=== PATIENT | female | born 1985 | race Caucasian/White ===

== ENCOUNTER 2018-04-13 09:29 | Outpatient (CLI) | payer OTHER, SELFPAY ==
[2018-04-13 22:01] LABS: Estradiol 27 pg/ml
[2018-04-14 10:34] LABS: LH 2.3 mIU/ml
[2018-04-14 10:52] LABS: FSH 8.4 mIU/ml
[2018-04-15 17:13] LABS: Antimullerian Hormone 0.6 ng/mL (0.9-9.5)
== END 2018-04-13 09:49 ==
PROVIDERS: PCP Nurse Practitioner Family; Visit Provider Obstetrics & Gynecology Gynecology
DX: N97.0 Female infertility associated with anovulation (principal)
CPT/HCPCS: 36415; 82670; 83001; 83002; 83520

== ENCOUNTER 2018-04-19 00:16 | Outpatient (CLI) | payer OTHER, SELFPAY ==
[2018-04-20 17:58] LABS: Progesterone 0.2 ng/ml
== END 2018-04-19 00:36 ==
PROVIDERS: Obstetrics & Gynecology; PCP Nurse Practitioner Family; Visit Provider Obstetrics & Gynecology Gynecology
DX: Z31.41 Encounter for fertility testing (principal)
CPT/HCPCS: 36415; 84144

== ENCOUNTER 2018-05-13 15:39 | Outpatient (CLI) | payer OTHER, SELFPAY ==
[2018-05-14 17:49] LABS: Estradiol 28 pg/ml
[2018-05-15 10:10] LABS: LH 3.5 mIU/ml
[2018-05-15 11:23] LABS: FSH 9.6 mIU/ml
== END 2018-05-13 15:59 ==
PROVIDERS: PCP Nurse Practitioner Family; Visit Provider Obstetrics & Gynecology Gynecology
DX: Z31.41 Encounter for fertility testing (principal)
CPT/HCPCS: 36415; 82670; 83001; 83002

== ENCOUNTER 2018-05-15 01:27 | Outpatient (CLI) | payer OTHER, SELFPAY ==
[2018-05-15] MEDS: Omnipaque 350 MG/ML 50 ML BTL IJ (13:58)
--- NOTE | 2018-05-15 13:59 | DI.RAD_ITS ---
SYMPTOMS/DIAGNOSIS: INFERTILITY HYSTEROSALPINGOGRAM: Fluoroscopy Time: 15 sec The procedure was performed by Dr. Rosa. Contrast is injected into the uterus. The uterus is anteverted. No uterine filling defects are seen. Spillage of contrast was seen definitely from the right fallopian tube and also likely from the left. There is no evidence of hydrosalpinx. IMPRESSION: Probable bilateral patent fallopian tubes.
--- NOTE | 2018-05-16 17:35 | OPPNE_ITS ---
Date of service: 05/15/18 Procedure Note Date of procedure: 05/15/18 Surgeon/Proceduralist/Physician: Jocelyn Rosa Procedure Diagnosis: Patient desires Procedure Indications: Hysterosalpingogram performed as part of a primary infertility evaluation. Procedure Description: Description of procedure. The procedure was performed in the fluoroscopy suite at [facility]. After informed consent was obtained she was placed in the dorsal supine position with a pillow beneath her sacrum elevating her hips. A bivalve speculum was placed in the vagina the cervix was cleansed with Betadine and a hysterosalpingogran catheter was threaded through the cervix and into the uterine cavity. The bulb at the tip of the catheter was inflated and the speculum removed. Dr. Luna, the radiologist, was present during the fluoroscopy portion of the procedure. Approximately 10 cc of Omnipaque contrast material was instilled by myself into the uterine cavity and followed through the fallopian tubes and observed spilling from the fimbria of both fallopian tubes. Both of the fallopian tubes appeared normal dimension. The uterine cavity also appeared normal. At the completion of the imaging the catheter bulb was deflated and removed from the patient's vagina. The results of the procedure were discussed at length with the patient. She tolerated the procedure well.
== END 2018-05-15 01:47 ==
PROVIDERS: PCP Nurse Practitioner Family; Visit Provider Obstetrics & Gynecology Gynecology
DX: Z31.41 Encounter for fertility testing (principal)
CPT/HCPCS: 58340; 76831; 74740; Q9967

== ENCOUNTER 2018-05-18 09:26 | Outpatient (CLI) | payer OTHER, SELFPAY ==
[2018-05-18 22:47] LABS: Estradiol 291 pg/ml
[2018-05-20 09:07] LABS: LH 5.6 mIU/ml
[2018-05-20 09:11] LABS: FSH 7.8 mIU/ml
== END 2018-05-18 09:46 ==
PROVIDERS: PCP Nurse Practitioner Family; Visit Provider Obstetrics & Gynecology Gynecology
DX: Z31.69 Encounter for other general counseling and advice on procreation
CPT/HCPCS: 36415; 82670; 83001; 83002

== ENCOUNTER 2018-07-13 11:52 | Outpatient (CLI) | payer OTHER, SELFPAY ==
[2018-07-13 12:50] LABS: HCG Quant, Pregnancy 7701 mIU/mL (1-3)
== END 2018-07-13 12:12 ==
PROVIDERS: PCP Nurse Practitioner Family; Visit Provider Obstetrics & Gynecology Gynecology
DX: Z34.91 Encounter for supervision of normal pregnancy, unspecified, first trimester (principal)
CPT/HCPCS: 36415; 84702

== ENCOUNTER 2018-08-17 16:49 | Outpatient (REF) | payer OTHER, SELFPAY ==
[2018-08-17 19:07] LABS: *AMPHETAMINES SCREEN URINE Negative (Negative); *BARBITURATES SCREEN URINE Negative (Negative); *BENZODIAZEPINES SCREEN URINE Negative (Negative); Cannabinoids THC Negative (Negative); Cocaine Screen,Urine Negative (Negative); METHADONE URINE SCREEN Negative (Negative); OPIATES URINE SCREEN Negative (Negative)
[2018-08-17 19:19] LABS: Tricyclic Antidepressants Negative (Negative)
[2018-08-19 14:45] LABS: Chlamydia Result Negative; GC Result Negative; Specimen Description URINE
[2018-08-21 19:31] LABS: Buprenorphine Negative; Norbuprenorphine Negative
== END 2018-08-17 17:09 ==
LOC: LBN 16:49
PROVIDERS: PCP Nurse Practitioner Family; Visit Provider Advanced Practice Midwife
DX: Z34.91 Encounter for supervision of normal pregnancy, unspecified, first trimester (principal); Z11.3 Encounter for screening for infections with a predominantly sexual mode of transmission
CPT/HCPCS: 80307; 87491; 87591; 87086

== ENCOUNTER 2018-08-20 13:57 | Outpatient (CLI) | payer OTHER, SELFPAY ==
[2018-08-20 14:34] LABS: Abs Immature Grans 0.01 k/cumm (0.0-0.09); Absolute Basophil Count 0.03 k/cumm (0.0-0.2); Absolute Eosinophil Count 0.19 k/cumm (0.0-0.7); Absolute Lymphocyte Count 2.41 k/cumm (1.2-3.4); Absolute Monocyte Count 0.45 k/cumm (0.11-0.7); Absolute Neutrophil Count 5.55 k/cumm (1.2-6.7); Basophils % 0.3; Eosinophils % 2.2; HCT 40.2 % (36.0-46.0); HGB 14.1 g/dL (12.0-15.5); Immature Grans % 0.1; Lymphocytes % 27.9; Mean Corp. HGB Concentration 35.1 g/dL (32.0-36.0); Mean Corpuscular Hemoglobin 29.4 pg (27.0-33.0); Mean Corpuscular Volume 83.8 fL (80-95); Mean Platelet Volume 9.4 fL (8.0-11.0); Monocytes % 5.2; Neutrophils % 64.3; Platelet Count 311 x1000/uL (130-400); RBC Distribution Width 12.3 % (11.7-14.6); White Blood Cell Count 8.64 k/cumm (4.4-10.8)
[2018-08-20 15:24] LABS: TSH (W/Ref FT4) 0.89 uIU/mL (0.358-3.74)
[2018-08-21 09:03] LABS: Hepatitis B Surface Ag Negative (NEGAT)
[2018-08-21 09:36] LABS: HIV-1/2 Ag & Ab Screen Negative (NEGAT)
[2018-08-21 13:01] LABS: Varicella IgG Antibody Positive
[2018-08-21 13:05] LABS: Syphilis Serology (RPR) Negative (Negative)
[2018-08-21 15:57] LABS: Rubella IgG Ab (UVM) Equivocal
== END 2018-08-20 14:17 ==
PROVIDERS: PCP Nurse Practitioner Family; Visit Provider Advanced Practice Midwife
DX: Z34.91 Encounter for supervision of normal pregnancy, unspecified, first trimester (principal); Z11.4 Encounter for screening for human immunodeficiency virus [HIV]; Z11.59 Encounter for screening for other viral diseases; Z01.84 Encounter for antibody response examination
CPT/HCPCS: 36415; 80055; 86787; 86850; 86900; 86901; 87340; 87389; 84443; 86592; 86704; 86762

== ENCOUNTER 2018-09-14 15:50 | Outpatient (CLI) | payer OTHER, SELFPAY ==
[2018-09-14 16:31] LABS: Glucose,1 Hr (Glucola) 129 mg/dL (80-140)
== END 2018-09-14 16:10 ==
PROVIDERS: Advanced Practice Midwife; PCP Nurse Practitioner Family; Visit Provider Advanced Practice Midwife
DX: Z34.91 Encounter for supervision of normal pregnancy, unspecified, first trimester (principal); Z68.30 Body mass index [BMI] 30.0-30.9, adult
CPT/HCPCS: 36415; 82950

== ENCOUNTER 2018-10-07 00:30 | Outpatient (CLI) | payer OTHER, SELFPAY ==
--- NOTE | 2018-10-07 14:44 | DI.US_ITS ---
Predicted Gestational Age: Indication/History: SURVEY, Z34.90 17.5 Wks Range: 16.5 to 18.5 Prior US done on: Determined by: First US LMP History EDC by prior US: 03/12/19 For multiple gestations: Baby PLACENTA: Grade: 0 Location: Anterior X Posterior PRESENTATION: RT LT LOW LYING PREVIA Cephalic Trans (Head RT LT ) Varied X Breech BIOMETRY: Anatomy Identified: BPD: 40 mm 18.1 wks 4 chamber Heart X Heart Rate 145 BPM HC: 152 mm 18.2 wks LVOT X Post Fossa X AC: 126 mm 18.1 wks RVOT X Ventricles X FL: 27 mm 18.1 wks Stomach X Nose X Bladder X Lips X Cisterna Magna: 3.4 mm CI: 85 Kidneys X Palate X Cerebellum: 1.8 mm 3 vessel cord X Spine X EFW: grms % Cord Insertion X NS= not seen Composite Age (US) 18.1 wks Many abnormalities cannot be diagnosed. A normal exam does not exclude congenital abnormality. EDC by US 03/09/19 Amniotic Fluid Index: Oligo Normal Polyhydramnios COMMENTS: RUQ: LUQ: RLQ: LLQ: Total: cm Biophysical Profile: Score 0/2 CANDICE (>2cm) Respirations (>30 sec) Body flexion/extension Extremity flexion/extension TOTAL SCORE OB ultrasound was performed utilizing second trimester protocol. biometry is consistent with a gestational age of 18 weeks 1 day and an EDC of 03/09/19. The placenta is anterior and there is no evidence of a placenta previa. There is visually a normal quantity of amniotic fluid. anomaly screen is within normal limits as per the attached checklist.
== END 2018-10-07 00:50 ==
PROVIDERS: PCP Nurse Practitioner Family; Visit Provider Advanced Practice Midwife
DX: Z34.92 Encounter for supervision of normal pregnancy, unspecified, second trimester (principal)
CPT/HCPCS: 76805

== ENCOUNTER 2018-12-07 12:28 | Outpatient (CLI) | payer OTHER, SELFPAY ==
[2018-12-07 14:10] LABS: Abs Immature Grans 0.07 k/cumm (0.0-0.09); Absolute Eosinophil Count 0.09 k/cumm (0.0-0.7); Absolute Lymphocyte Count 2.24 k/cumm (1.2-3.4); Absolute Monocyte Count 0.58 k/cumm (0.11-0.7); Basophils % 0.2; Eosinophils % 0.7; HCT 34.9 % (36.0-46.0); HGB 11.9 g/dL (12.0-15.5); Immature Grans % 0.5; Lymphocytes % 16.9; Mean Corp. HGB Concentration 34.1 g/dL (32.0-36.0); Mean Corpuscular Hemoglobin 29.7 pg (27.0-33.0); Mean Platelet Volume 9.1 fL (8.0-11.0); Monocytes % 4.4; Neutrophils % 77.3; Platelet Count 277 x1000/uL (130-400); RBC 4.01 m/cumm (4.00-5.20); RBC Distribution Width 13.2 % (11.7-14.6); White Blood Cell Count 13.28 k/cumm (4.4-10.8)
[2018-12-07 14:16] LABS: Absolute Basophil Count 0.03 k/cumm (0.0-0.2); Absolute Neutrophil Count 10.27 k/cumm (1.2-6.7)
[2018-12-07 14:44] LABS: Glucose,1 Hr (Glucola) 132 mg/dL (80-140)
== END 2018-12-07 12:48 ==
PROVIDERS: PCP Nurse Practitioner Family; Visit Provider Advanced Practice Midwife
DX: Z34.92 Encounter for supervision of normal pregnancy, unspecified, second trimester (principal)
CPT/HCPCS: 36415; 82950; 85025

== ENCOUNTER 2019-02-17 17:08 | Outpatient (REF) | payer OTHER, SELFPAY ==
[2019-02-17 17:54] LABS: *AMPHETAMINES SCREEN URINE Negative (Negative); *BARBITURATES SCREEN URINE Negative (Negative); *BENZODIAZEPINES SCREEN URINE Negative (Negative); Cannabinoids THC Negative (Negative); Cocaine Screen,Urine Negative (Negative); METHADONE URINE SCREEN Negative (Negative); OPIATES URINE SCREEN Negative (Negative)
[2019-02-17 17:58] LABS: Tricyclic Antidepressants Negative (Negative)
[2019-02-22 09:26] LABS: Buprenorphine Negative
== END 2019-02-17 17:28 ==
LOC: LBN 17:08
PROVIDERS: PCP Nurse Practitioner Family; Visit Provider Advanced Practice Midwife
DX: Z34.93 Encounter for supervision of normal pregnancy, unspecified, third trimester (principal); Z36.85 Encounter for antenatal screening for Streptococcus B
CPT/HCPCS: 80307; 87081; 87480; 87510; 87660

== ENCOUNTER 2019-02-24 16:13 | Outpatient (CLI) | payer OTHER, SELFPAY ==
[2019-02-24 16:34] LABS: HCT 34.8 % (36.0-46.0); HGB 11.9 g/dL (12.0-15.5); Mean Corp. HGB Concentration 34.2 g/dL (32.0-36.0); Mean Corpuscular Hemoglobin 29.4 pg (27.0-33.0); Mean Corpuscular Volume 85.9 fL (80-95); Mean Platelet Volume 9.4 fL (8.0-11.0); Platelet Count 230 x1000/uL (130-400); RBC 4.05 m/cumm (4.00-5.20); RBC Distribution Width 13.5 % (11.7-14.6); White Blood Cell Count 9.28 k/cumm (4.4-10.8)
[2019-02-24 17:18] LABS: PROTEIN < 6.0 mg/dL
[2019-02-24 19:07] LABS: COMMENT (LAB VIEW ONLY) 10.41 mg/dL
[2019-02-25 07:41] LABS: ALT 12 U/L (14-59); AST 14 U/L (15-37); Albumin 2.7 g/dL (3.4-5.0); Alkaline Phosphatase 134 U/L (46-116); Anion Gap 10.6 mmol/L (3-11); BUN 4 mg/dL (7-18); Bilirubin, Total 0.2 mg/dL (0.2-1.0); CO2 23.4 mmol/L (21.0-32.0); CREATININE 0.55 mg/dL (0.55-1.02); Calcium 8.5 mg/dL (8.5-10.1); Chloride 104 mmol/L (98-107); Glucose 98 mg/dL (70-100); Potassium 3.4 mmol/L (3.5-5.1); Sodium 138 mmol/L (136-145); Total Protein 6.3 g/dL (6.4-8.2); Uric Acid 3.3 mg/dL (2.6-6.0)
== END 2019-02-24 16:33 ==
PROVIDERS: PCP Nurse Practitioner Family; Visit Provider Advanced Practice Midwife
DX: O14.93 Unspecified pre-eclampsia, third trimester (principal)
CPT/HCPCS: 36415; 80053; 85027; 82565; 84156; 84550

== ENCOUNTER 2019-03-02 16:24 | Outpatient (CLI) | payer OTHER, SELFPAY ==
[2019-03-02 16:59] LABS: HCT 38.2 % (36.0-46.0); HGB 12.8 g/dL (12.0-15.5); Mean Corp. HGB Concentration 33.5 g/dL (32.0-36.0); Mean Corpuscular Hemoglobin 28.3 pg (27.0-33.0); Mean Corpuscular Volume 84.5 fL (80-95); Platelet Count 221 x1000/uL (130-400); RBC 4.52 m/cumm (4.00-5.20); RBC Distribution Width 13.4 % (11.7-14.6); White Blood Cell Count 11.03 k/cumm (4.4-10.8)
[2019-03-02 17:05] LABS: PROTEIN 27.3 mg/dL
[2019-03-02 17:06] LABS: COMMENT (LAB VIEW ONLY) 131.38 mg/dL
[2019-03-02 18:00] LABS: ALT 13 U/L (14-59); AST 16 U/L (15-37); Albumin 2.7 g/dL (3.4-5.0); Alkaline Phosphatase 153 U/L (46-116); BUN 6 mg/dL (7-18); Bilirubin, Total 0.3 mg/dL (0.2-1.0); CREATININE 0.62 mg/dL (0.55-1.02); Calcium 8.4 mg/dL (8.5-10.1); Chloride 102 mmol/L (98-107); Glucose 70 mg/dL (70-100); Potassium 3.9 mmol/L (3.5-5.1); Sodium 136 mmol/L (136-145); Total Protein 6.6 g/dL (6.4-8.2); Uric Acid 3.5 mg/dL (2.6-6.0)
== END 2019-03-02 16:44 ==
PROVIDERS: PCP Nurse Practitioner Family; Visit Provider Advanced Practice Midwife
DX: O14.93 Unspecified pre-eclampsia, third trimester (principal)
CPT/HCPCS: 36415; 80053; 85027; 82565; 84156; 84550

== ENCOUNTER 2019-03-02 17:18 | Outpatient (CLI) | payer OTHER, SELFPAY | END 2019-03-02 17:38 | PROVIDERS: PCP Nurse Practitioner Family; Visit Provider Advanced Practice Midwife | DX: O26.893 Other specified pregnancy related conditions, third trimester (principal); R03.0 Elevated blood-pressure reading, without diagnosis of hypertension; Z3A.38 38 weeks gestation of pregnancy | CPT/HCPCS: 59025 ==

== ENCOUNTER 2019-03-05 17:23 | Inpatient (IN) | payer OTHER, SELFPAY ==
[2019-03-05 18:06] LABS: HCT 36.7 % (36.0-46.0); HGB 12.3 g/dL (12.0-15.5); Mean Corp. HGB Concentration 33.5 g/dL (32.0-36.0); Mean Corpuscular Hemoglobin 28.3 pg (27.0-33.0); Mean Corpuscular Volume 84.6 fL (80-95); Platelet Count 229 x1000/uL (130-400); RBC 4.34 m/cumm (4.00-5.20); RBC Distribution Width 13.2 % (11.7-14.6); White Blood Cell Count 9.78 k/cumm (4.4-10.8)
[2019-03-05] MEDS: miSOPROStol 25 MCG TAB SL ×3 (19:16→23:48)
[2019-03-05] MEDS: Sertraline 50 MG TAB PO (19:48)
[2019-03-05 20:05] LABS: ALT 12 U/L (14-59); AST 17 U/L (15-37); Albumin 2.6 g/dL (3.4-5.0); Alkaline Phosphatase 156 U/L (46-116); Anion Gap 12.6 mmol/L (3-11); BUN 9 mg/dL (7-18); Bilirubin, Total 0.3 mg/dL (0.2-1.0); CO2 22.4 mmol/L (21.0-32.0); CREATININE 0.55 mg/dL (0.55-1.02); Calcium 8.7 mg/dL (8.5-10.1); Chloride 103 mmol/L (98-107); Glucose 73 mg/dL (70-100); Potassium 4.1 mmol/L (3.5-5.1); Sodium 138 mmol/L (136-145); Total Protein 6.5 g/dL (6.4-8.2); Uric Acid 3.7 mg/dL (2.6-6.0)
[2019-03-05] MEDS: miSOPROStol 25 MCG TAB (23:41)
[2019-03-06] MEDS: miSOPROStol 25 MCG TAB SL ×2 (03:45→03:46)
[2019-03-06] MEDS: Lactated Ringers 1,000 ML 200 ML IV (06:45)
[2019-03-06] MEDS: Penicillin G POT. 5,000,000 UNITS in Normal Saline 100 ML 200 UNITS IVPB (09:31)
[2019-03-06] MEDS: Nalbuphine 10 MG/ML AMP SC (11:29)
[2019-03-06] MEDS: Oxytocin 10 UNITS/ML VIAL IM (13:11)
[2019-03-06] MEDS: Acetaminophen 325 MG TAB 650 MG PO (15:09)
[2019-03-06] MEDS: Hamamelis Leaf/Glycerin 100 EACH BOX PR (15:41)
[2019-03-06] MEDS: Docusate Sodium 100 MG CAP PO (19:42)
[2019-03-06] MEDS: Ibuprofen 600 MG TAB PO (19:44)
[2019-03-06] MEDS: Sertraline 50 MG TAB PO (19:44)
[2019-03-07] MEDS: Ibuprofen 600 MG TAB PO ×3 (05:17→19:25)
[2019-03-07] MEDS: Acetaminophen 325 MG TAB 650 MG PO ×3 (07:29→14:31)
[2019-03-07 07:45] LABS: HCT 30.4 % (36.0-46.0); Mean Corp. HGB Concentration 32.9 g/dL (32.0-36.0); Mean Corpuscular Hemoglobin 27.9 pg (27.0-33.0); Mean Corpuscular Volume 84.9 fL (80-95); Mean Platelet Volume 9.7 fL (8.0-11.0); Platelet Count 242 x1000/uL (130-400); RBC 3.58 m/cumm (4.00-5.20); RBC Distribution Width 13.4 % (11.7-14.6); White Blood Cell Count 11.88 k/cumm (4.4-10.8)
[2019-03-07] MEDS: Docusate Sodium 100 MG CAP PO ×2 (11:06→19:25)
[2019-03-07] MEDS: Sertraline 50 MG TAB PO (19:30)
[2019-03-08] MEDS: Acetaminophen 325 MG TAB 650 MG PO ×2 (00:04→05:59)
[2019-03-08] MEDS: Ibuprofen 600 MG TAB PO ×2 (03:35→11:30)
[2019-03-08] MEDS: Measles, Mumps, & Rubella Vaccine 0.5 ML VIAL SC (11:31)
[2019-03-08] MEDS: Docusate Sodium 100 MG CAP PO (11:31)
== END 2019-03-08 12:35 | disposition home or self-care (01) | DRG 807 ==
PROVIDERS: Admitting Provider Advanced Practice Midwife; PCP Nurse Practitioner Family; Visit Provider Advanced Practice Midwife
DX: O13.4 Gestational [pregnancy-induced] hypertension without significant proteinuria, complicating childbirth (principal); Z37.0 Single live birth; O99.344 Other mental disorders complicating childbirth; O99.89 Other specified diseases and conditions complicating pregnancy, childbirth and the puerperium; O99.824 Streptococcus B carrier state complicating childbirth; O77.0 Labor and delivery complicated by meconium in amniotic fluid; O70.0 First degree perineal laceration during delivery; O69.81X0 Labor and delivery complicated by cord around neck, without compression, not applicable or unspecified; F43.12 Post-traumatic stress disorder, chronic; F41.8 Other specified anxiety disorders; Z3A.39 39 weeks gestation of pregnancy; X58.XXXS Exposure to other specified factors, sequela; R11.0 Nausea; Z23 Encounter for immunization
CPT/HCPCS: 36415; 80053; 85027; 86850; 86900; 86901; 84550; J2540; J2590; J3490

== ENCOUNTER 2019-09-19 12:14 | Emergency (ER) | payer OTHER, SELFPAY ==
[2019-09-19 12:17] VITALS: BP 138/92; PULSE 90; RESP 18; TEMP 36.7; O2SAT 95
[2019-09-19] MEDS: ACETAMINOPHEN 1,000 MG/100 ML BTL 400 MG IVPB (12:55)
[2019-09-19] MEDS: Normal Saline 1,000 ML 1000 ML IV (12:55)
[2019-09-19] MEDS: Ondansetron 4 MG/2 ML VIAL IVP (12:56)
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
[2019-09-19 12:58] LABS: Abs Immature Grans 0.04 k/cumm (0.0-0.09); Absolute Eosinophil Count 0.02 k/cumm (0.0-0.7); Basophils % 0.3; Eosinophils % 0.1; HCT 40.2 % (36.0-46.0); HGB 14.1 g/dL (12.0-15.5); Immature Grans % 0.3 %; Lymphocytes % 12.1; Mean Corp. HGB Concentration 35.1 g/dL (32.0-36.0); Mean Corpuscular Hemoglobin 29.5 pg (27.0-33.0); Mean Corpuscular Volume 84.1 fL (80-95); Mean Platelet Volume 8.4 fL (8.0-11.0); Monocytes % 4.5; Neutrophils % 82.7; Platelet Count 380 x1000/uL (130-400); RBC 4.78 m/cumm (4.00-5.20); RBC Distribution Width 12.8 % (11.7-14.6); White Blood Cell Count 15.25 k/cumm (4.4-10.8)
[2019-09-19 12:59] LABS: Absolute Basophil Count 0.05 k/cumm (0.0-0.2); Absolute Lymphocyte Count 1.85 k/cumm (1.2-3.4); Absolute Monocyte Count 0.69 k/cumm (0.11-0.7); Absolute Neutrophil Count 12.61 k/cumm (1.2-6.7)
[2019-09-19 12:59] LABS: Bilirubin Negative (Negative); Blood Trace-intact (Negative); Clarity Clear (Clear); Glucose Negative (Negative); Ketones Negative (Negative); Leukocyte Esterase Small (Negative); Nitrite Negative (Negative); Specific Gravity >= 1.030 (1.005-1.025); Urobilinogen 0.2 EU/dL (Up TO 0.2)
[2019-09-19 13:10] LABS: Bacteria Moderate HPF (Negative); C & S Indicated? No/Sq. Contamination; Casts Negative LPF (Negative); Crystals Negative HPF (Negative); Epithelial Cells Moderate HPF (Negative); Mucus Negative (Negative); Other Cells Few Renal (Negative); WBC 20-50 HPF (0-5)
[2019-09-19 13:12] LABS: ALT 19 U/L (14-59); AST 15 U/L (15-37); Albumin 4.1 g/dL (3.4-5.0); Alkaline Phosphatase 104 U/L (46-116); Anion Gap 13.4 mmol/L (3-11); BUN 9 mg/dL (7-18); Bilirubin, Total 0.6 mg/dL (0.2-1.0); CO2 22.6 mmol/L (21.0-32.0); CREATININE 0.79 mg/dL (0.55-1.02); Calcium 8.9 mg/dL (8.5-10.1); Chloride 101 mmol/L (98-107); Glucose 89 mg/dL (74-106); Lipase 89 U/L (73-393); Potassium 3.6 mmol/L (3.5-5.1); Sodium 137 mmol/L (136-145); Total Protein 8.1 g/dL (6.4-8.2)
[2019-09-19 13:44] LABS: HCG Quant, Pregnancy < 1 mIU/mL (1-3)
--- NOTE | 2019-09-19 13:45 | DI.CT_ITS ---
EXAM: CT ABDOMEN PELVIS W CLINICAL HISTORY: RUQ pain r/o cholecystits TECHNIQUE: Imaging Protocol: Axial computed tomography images with coronal and sagittal reformatted images were created and reviewed CONTRAST MATERIAL: Intravenous: Omnipaque 350 Contrast volume:100 mL Oral: No COMPARISON: No exams were available for comparison FINDINGS: ABDOMEN: Lung Bases: Normal where visualized. Liver: Normal density. No measurable mass. Portal, Superior Mesenteric, and Splenic Veins: Unremarkable. Gallbladder and Biliary Tract: There are gallstones present. There is mild gallbladder wall thickeni ng. No pericholecystic fluid is present. There is no biliary ductal dilatation. Pancreas: Normal density, no abnormal calcifications or inflammatory process. Spleen: Normal. Adrenals: No masses seen. Kidneys: Normal size, contour and axis. No radiodense stones or obstructive uropathy. No masses seen. Abdominal Aorta: Abdominal portion non-dilated. Bowel: No obstruction or bowel wall thickening. Appendix is unremarkable. Peritoneal Cavity: No ascites, collection or mesenteric inflammatory response. Lymph Nodes: Within normal limits. Bones: Unremarkable. Soft Tissues: There is a small fat containing umbilical hernia. PELVIS: Bladder: Symmetric distention, no gross wall thickening. Reproductive Organs: Unremarkable as visualized. Lymph Nodes: Within normal limits. Bones: Within normal limits. IMPRESSION: 1. Cholelithiasis. Mild gallbladder wall thickening. No pericholecystic fluid or biliary ductal dil atation. If further imaging is warranted, ultrasound may be obtained. 2. No other acute abdominal or pelvic process. RADIATION DOSE DELIVERED: Total DLP DATA REPOSITORY: All CT scans at this facility are submitted to the National Radiology Data Registry (NRDR) Dose Index Registry (DIR) with the [employer] (ACR). RADIATION OPTIMIZATION: All CT scans at this facility use at least one of these dose optimization te chniques: automated exposure control; mA and/or kV adjustment per patient size (includes targeted exa ms where dose is matched to clinical indication); or iterative reconstruction.
[2019-09-19 14:15] VITALS: BP 140/90; PULSE 78; RESP 18; TEMP 36.6; O2SAT 97
[2019-09-19] MEDS: Omnipaque 350 MG/ML 100 ML BTL IJ (14:39)
[2019-09-19 15:18] VITALS: BP 131/87; PULSE 78; RESP 18; TEMP 36.6; O2SAT 99
--- NOTE | 2019-09-19 15:32 | DI.VRAD_ITS ---
PROCEDURE INFORMATION: Exam: CT Abdomen And Pelvis With Contrast Exam date and time: 09/19/2019 1:52 PM Age: 33 years old Clinical indication: Other: Ruq pain TECHNIQUE: Imaging protocol: Computed tomography of the abdomen and pelvis with intravenous contrast. COMPARISON: US OB 2-3 trimester 10/07/2018 3:01 PM FINDINGS: Lungs: There is no significant airspace consolidation at the lung bases. Pleural effusion is not seen. Liver: No focal intrahepatic abnormality is identified. Gallbladder and bile ducts: Cholelithiasis is noted. There is possible mild gallbladder wall thickening but there is no evidence of pericholecystic fluid. There is no significant biliary ductal dilatation Pancreas: Pancreas is unremarkable Spleen: The spleen is not enlarged Adrenals: Adrenals are unremarkable Kidneys and ureters: No radiopaque urinary tract calculi identified. No evidence of hydronephrosis. Stomach and bowel: Non-opacified loops of bowel are unremarkable. There is no evidence of bowel obstruction, mass or pneumatosis. Appendix: No evidence of acute appendicitis. Intraperitoneal space: No free fluid focal collections or free intraperitoneal air. Vasculature: Aorta is unremarkable. Lymph nodes: No significant adenopathy is identified. Bladder: No bladder calculi are identified. There is a possible small urachal remnant anteriorly. Reproductive: Uterus, adnexae are unremarkable Bones/joints: There is no acute bony abnormality Soft tissues: There is a small fat containing ventral/umbilical hernia. IMPRESSION: 1. Cholelithiasis. Possible mild gallbladder wall thickening but no definite pericholecystic fluid or biliary ductal dilatation. 2. No other significant or acute findings identified. Dictated and Authenticated by: Eulalia Sharp MD. Ordering:JANE Mackey MD
[2019-09-19 16:14] VITALS: RESP 18; TEMP 36.6; O2SAT 99
== END 2019-09-19 16:20 | disposition home or self-care (01) ==
PROVIDERS: Emergency Provider Physician Assistant; PCP Nurse Practitioner Family
DX: K80.20 Calculus of gallbladder without cholecystitis without obstruction (principal)
CPT/HCPCS: 80053; 83690; 96361; 96374; 96375; 99285; 74177; 81003; 81015; 84702; 84703; 85025; 99284; J0131; J2405; J3490

== ENCOUNTER 2019-09-20 14:29 | Outpatient (CLI) | payer OTHER, SELFPAY ==
[2019-09-20 15:36] LABS: Abs Immature Grans 0.04 k/cumm (0.0-0.09); Absolute Basophil Count 0.03 k/cumm (0.0-0.2); Absolute Eosinophil Count 0.08 k/cumm (0.0-0.7); Absolute Lymphocyte Count 3.19 k/cumm (1.2-3.4); Absolute Monocyte Count 0.72 k/cumm (0.11-0.7); Basophils % 0.3; Eosinophils % 0.7; HGB 13.4 g/dL (12.0-15.5); Immature Grans % 0.4 %; Lymphocytes % 28.3; Mean Corp. HGB Concentration 34.4 g/dL (32.0-36.0); Mean Corpuscular Hemoglobin 29.4 pg (27.0-33.0); Mean Corpuscular Volume 85.5 fL (80-95); Mean Platelet Volume 8.6 fL (8.0-11.0); Monocytes % 6.4; Neutrophils % 63.9; Platelet Count 350 x1000/uL (130-400); RBC 4.56 m/cumm (4.00-5.20); RBC Distribution Width 12.8 % (11.7-14.6); White Blood Cell Count 11.28 k/cumm (4.4-10.8)
[2019-09-20 15:37] LABS: Absolute Neutrophil Count 7.21 k/cumm (1.2-6.7)
[2019-09-20 16:33] LABS: Anion Gap 11.1 mmol/L (3-11); BUN 11 mg/dL (7-18); CO2 25.9 mmol/L (21.0-32.0); CREATININE 0.95 mg/dL (0.55-1.02); Chloride 99 mmol/L (98-107); Glucose 104 mg/dL (74-106); Potassium 3.4 mmol/L (3.5-5.1); Sodium 136 mmol/L (136-145)
== END 2019-09-20 14:49 ==
PROVIDERS: PCP Nurse Practitioner Family; Visit Provider Surgery
DX: D72.829 Elevated white blood cell count, unspecified (principal); Z01.818 Encounter for other preprocedural examination
CPT/HCPCS: 36415; 80048; 85025

== ENCOUNTER 2019-09-21 00:20 | Outpatient (CLI) | payer OTHER, SELFPAY ==
--- NOTE | 2019-09-21 07:00 | DI.US_ITS ---
EXAM: US ABDOMEN CLINICAL HISTORY: Assess Gallbladder, CT done yesterday,gallstones, k80.20 TECHNIQUE: Ultrasound performed using standard protocol. COMPARISON: US OB 2-3 trimester from 10/07/2018 CT ABDOMEN PELVIS W from 09/19/2019 FINDINGS: Abdominal ultrasound was performed. Yesterday's CT examination showed a gallstone. On today's ultra sound examination, there is a thickened gallbladder wall and mild pericholecystic fluid collection. The gallbladder is essentially full of sludge with focus of increased echogenicity in the fundus cons istent with the gallstone identified on yesterday's examination. No biliary dilatation seen. Pancre as appears intact as visualized. The kidneys are unremarkable in appearance with no evidence of hydronephrosis or nephrolithiasis. Ab dominal aorta and IVC are of normal diameter. Spleen appears intact. IMPRESSION: Sludge filled gallbladder with thickened wall and mild pericholecystic fluid collection. Gallstone i s presumptively identified, as seen on yesterday's CT examination. The findings as described are iram picious for acute cholecystitis, please correlate clinically. DATA REPOSITORY:
== END 2019-09-21 00:40 ==
PROVIDERS: PCP Nurse Practitioner Family; Visit Provider Surgery
DX: K82.4 Cholesterolosis of gallbladder; K80.60 Calculus of gallbladder and bile duct with cholecystitis, unspecified, without obstruction
CPT/HCPCS: 76700

== ENCOUNTER 2019-09-22 07:43 | Day surgery (SDC) | payer OTHER, SELFPAY ==
[2019-09-22] VITALS (7 sets, daily range): BP systolic 91–136; BP diastolic 65–95; PULSE 67–85; RESP 11–20; TEMP 36.4–37.1; O2SAT 96–100
--- NOTE | 2019-09-22 07:13 | W.PM.OP ---
Date of service: 09/22/19 Time of Service: 11:56 Operative Note Operative Note DATE OF PROCEDURE: 09/22/19 PRE-OP DIAGNOSIS: Acute Cholecystitis and Umbilical Hernia POST-OP DIAGNOSIS: same PROCEDURE: Laparoscopic Cholecystectomy Primary repair of Umbilical hernia SURGEON: Megan Holland CLIENT SALES AND SERVICE OFFICER: Stephani Cobos ANESTHESIA: GETA (Candelario Vázquez, CIRCULATION MAN/ ASA 2) ESTIMATED BLOOD LOSS: 50 PATHOLOGY: other (Gallbladder and content) COMPLICATIONS: None Patient was transported to: PACU Patient's condition: stable Implants: None Indications: Olga Lidia is a pleasant 33 year old female with acute Cholecystitis seen in the office on Friday. Labs and US were indicative of acute cholecystitis. Laparoscopic Cholecystectomy was reviewed. Risks, benefits, complications were reviewed with the patient in the office. Complications include but are not limited to bleeding, infection, injury to stomach, small bowel and large bowel, injury to the pancreas, injury to the common bile duct necessitating drainage and referral to tertiary center for repair, bile leak, adverse reactions to the medications, complications of intubation including a sore throat or injury to the uvula, NC, stroke and even . Questions were entertained and answered to her satisfaction and she wished to proceed. No guarantees were given or implied. Findings: There was inflammation and pericholecystic fluid noted. Liver looked normal Procedure Description: After informed consent was obtained the patient was taken to the PACU and anesthesia performed an erector spine block for postoperative comfort. Once the block was in place the patient was brought to the operating room, placed in a supine position and monitors were applied. SCDs were applied to her lower extremities. COVI-19 precaution were observed. She was then placed under general anesthesia and intubated without difficulty. Her abdomen was then prepped and draped in a sterile fashion using ChloraPrep. At this point a timeout was done and the patient's name, date of , procedure type, allergies to medications, metal in her body, antibiotic and DVT prophylaxis, and fire risk was assessed. At this point .25% Bupivocaine mixed with exparel was injected just above the umbilicus into the dermis and subcutaneous tissue. A 10 mm incision was made with an 11 blade. The incarcerated fat in the hernia was identified and removed with cautery. The fascia was grasped with kockers and a 5 mm port was placed under direct visualization into the abdomen. The abdomen was insuflated and then 3 more ports were placed. A 12 mm port was placed in the subxiphoid area and two 5 mm ports were placed in the right upper quadrant. The liver was inspected and was normal. The patient's bed was then turned to the left and her head was brought up. The gallbladder was grasped at the body and pushed towards the right shoulder, this allowed me to visualize the neck of the gallbladder. Omentum that was adhered to the Gallbladder was removed with cautery. The neck was grasped and pulled towards the right flank and down allowing me to visualize the lymph node. Using a [place] dissector with cautery the lymph node was gently dissected away from the tissues and the fatty tissue was also dissected away. The cystic duct was identified it was normal in size. The duct was dissected 360 degrees using the [place] dissector in order for me to visualize its entrance into the gallbladder. Liver was noted behind it. There were no other structures right behind. The cystic artery was then identified and dissected 360 degrees. It was located just medial to the cystic duct. It was visualized going into the gallbladder. It was noted to be very short. Critical view was achieved. 3 clips were placed one proximal and 2 distal and the cystic duct and the cystic artery and both were then cut. Using the hook dissector the gallbladder was then dissected away from the liver bed. There was pericholecystic fluid noted. I did perforated the gallbladder and the bile was quickly suctioned. The bile was thick and white. Once the Gallbladder was removed it was placed into an Endo Catch bag and pulled through the 12 mm port site. The 12 mm port was placed back into the abdomen under direct visualization. The liver bed was inspected. Small amount of bleeding was noted. The bleeding was stopped with cautery. The abdomen was then irrigated with a liter and a half of normal saline until the effluent was clear. There was still a little bit of oozing noted from the liver so floseal was applied to the liver bed. Once all the fluid was suctioned out, 10 cc of 1% Lidocaine was injected above the liver to help with postoperative right shoulder pain. The 12 mm and the 2 right upper quadrant ports were removed under direct visualization and no bleeding was noted from the fascia. The abdomen was deflated completely and lastly the umbilical port was removed. The skin was cleaned. The umbilical hernia was primarily closed with a figuere of eight suture with 0 vicryl. The dermis of all the incisions were closed with 4-0 Vicryl. The skin was dried. Mastasol and steri-strips were applied. 2x2 and tegaderms were applied. Needle and sponge counts were correct at the end of the case. At this point the patient was woken up, extubated and taken back to recovery in stable condition. There were no immediate complications.
--- NOTE | 2019-09-22 07:15 | PDOC.DSDIS_ITS ---
Discharge Plan Disposition Patient Disposition: HOME Condition: Good Discharge Details Reason For Visit: LAPAROSCOPIC CHOLECYSTECTOMY Attending Provider: Megan Holland Primary Care Provider: Rodger Bills Home Meds and New Rx's Prescriptions: Continued acetaminophen [Tylenol Extra Strength] 500 mg tablet 500 mg PO Q6H PRNRF: 0 ondansetron HCl [Zofran] 4 mg tablet 4 mg PO Q6H PRN (Reason: nausea and vomiting) Qty: 14 RF: 0 (DME) breast pump device See Rx Instructions .ROUTE .MEDSUPPLY Qty: 1 RF: 0 norethindrone (contraceptive) [Ortho Micronor] 0.35 mg tablet 0.35 mg PO DAILY Qty: 84 RF: 4 sertraline [Zoloft] 20 MG/1 ML concentrate 50 mg PO DAILY RF: 0 Discharge Instructions Instructions: Laparoscopic Cholecystectomy (GEN) Additional Instructions: Activity at Home after surgery: 1. Make sure you walk outside at least 4 times per day 2. You should be able to climb a flight of stairs 3. No driving while in pain or taking pain medications 4. No strenuous activity or heavy lifting for 2 weeks (laparoscopic surgery) Diet, Nutrition, & wound healin. Avoid alcohol until after you are recovered from your surgery 2. Make sure to eat plenty of lean protein (meat, fish, eggs, cottage cheese, beans) 3. Eat a variety of fruits and vegetables. Eat plenty of high fiber foods to avoid constipation. 4. Drink plenty of liquids to stay hydrated and avoid constipation Pain Medications: 1. Tylenol 650 mg every 6 hours as needed and Ibuprofen 600 mg every 6 hours as needed 2. If a narcotic has been prescribed take as directed only for breakthrough pain For Constipation: 1. Take Milk of Magnesia or MiraLax as needed for constipation Other: 1. You may shower daily. Do not scrub the incisions 2. Do not soak the incisions for 1 week 3. You may alternate ice and heat as needed for pain and swelling Wound Care: 1. Keep the incisions clean and dry Please call our office if you develop: 1. Fevers >101.5 2. Nausea or Vomiting 3. Worsening pain 4. Redness and thick discharge from the wounds If after hours please call the Hospital at and ask to speak to the on-call surgeon Referrals: Megan Holland MD [ [facility] STAFF PHYSICIAN] - 10/08/19 8:00 am Activity:: No lifting, pullining or pushing >20 lb for 2 weeks Remove Dressings/Wound Care:: 24 hours Shower/Bathe:: 24 hours Diet:: low fat for 2 weeks Discharge Orders Discharge Orders: Discharge Order (Routine); Ordered 09/22/19 Ordered By: Megan Holland DS: Diagnosis Discharge Diagnosis (1) Acute cholecystitis: Status: Acute
[2019-09-22] MEDS: Lactated Ringers 1,000 ML 80 ML IV (09:02)
[2019-09-22] MEDS: Bupivacaine 0.25% Pres-Free 10 ML VIAL (09:30)
[2019-09-22] MEDS: Bupivacaine LIPOSOME/PF 133 MG/10 ML VIAL IJ ×2 (09:30→10:30)
[2019-09-22] MEDS: ceFAZolin 2 GM/50 ML BAG IVPB (09:42)
[2019-09-22] MEDS: Lidocaine 1% Multi-Dose 50 ML VIAL (10:05)
[2019-09-22] MEDS: Bupivacaine 0.25% Pres-Free 30 ML VIAL (10:39)
--- NOTE | 2019-09-22 10:52 | GB_PTH ---
PATIENT: Olga Lidia Razo LOC: [facility] U#:[id number] AGE/SX: 33/F ROOM: RE09/22/[address]: Megan Holland MD : 1985 BED: DIS: 09/22/2019 SPEC #: [id number] RECD: 09/22/19 12:49 STATUS: COREY REQ #: [id number] [place]: 09/22/19 10:[address]: Megan Holland DEPT: Surgical Specimen RECD BY: Lefty Almazan ENTERED: 09/22/19 12:50 SP TYPE: GB OTHR DR: Rodger Bills Tissues: 1 - GALLBLADDER Procedures: GROSS AND MICRO LEVEL 3 Comments: [id number]
[2019-09-22] MEDS: Acetaminophen 500 MG TAB 1000 MG PO (13:37)
--- NOTE | 2019-09-22 13:40 | PDOC.ANES ---
Date of service: 09/22/19 Time of Service: 13:41 Anesthesia Note Report Anesthesia Note: Was asked to see Olga Lidia in [facility] for vague complaints of chest discomfort. When asked about her pain she points to her right upper stomach. When asked about her chest discomfort she mostly describes it as just difficult to take in a full breath due to discomfort. she also states that he shoulders are a little uncomfortable. Discussed that her symptoms seem consistent with pain from the insufflation, but that we would get an EKG. Her EKG is unremarkable.
== END 2019-09-22 14:25 | disposition home or self-care (01) ==
LOC: SUR 07:43
PROVIDERS: PCP Nurse Practitioner Family; Visit Provider Surgery
PROC: 0FT44ZZ Resection of Gallbladder, Percutaneous Endoscopic Approach (ICD-10-PCS; CPT 47562; principal; 2019-09-22 09:15)
DX: K81.0 Acute cholecystitis (principal); K42.0 Umbilical hernia with obstruction, without gangrene; G89.18 Other acute postprocedural pain; R07.89 Other chest pain
CPT/HCPCS: 47562; 49587; 76942; 88304; 93005; 93010; J0690; J1100; J1885; J2250; J2405; J2704

== ENCOUNTER 2020-07-04 11:03 | Outpatient (REF) | payer OTHER, SELFPAY ==
--- NOTE | 2020-07-04 10:00 | PAPFT_PTH ---
PATIENT: Olga Lidia Razo LOC: [facility] U#:[id number] AGE/SX: 34/F ROOM: RE07/04/[address]: Irish Gusman CNM : 1985 BED: DIS: 07/04/2020 SPEC #: [id number] RECD: 07/04/20 18:10 STATUS: COREY REQ #: [id number] [place]: 07/04/20 10:[address]: Irish Gusman DEPT: [facility] Cytology RECD BY: Wendi Mosqueda ENTERED: 07/04/20 18:10 SP TYPE: PAPFT OTHR DR: Rodger Bills Tissues: 1 - CX/ENDOCX FOR PAP SMEARS Procedures: PAP THIN PREP/UVM Screening HPV DNA PROBE Comments: [id number]
== END 2020-07-04 11:04 | disposition home or self-care (01) ==
LOC: LBN 11:03
PROVIDERS: PCP Nurse Practitioner Family; Visit Provider Advanced Practice Midwife
DX: Z12.4 Encounter for screening for malignant neoplasm of cervix (principal); Z11.51 Encounter for screening for human papillomavirus (HPV)
CPT/HCPCS: 88142; 87624

== ENCOUNTER 2022-11-07 01:16 | Outpatient (CLI) | payer BC, SELFPAY ==
[2022-11-07 15:19] LABS: Abs Immature Grans 0.04 10^3/uL (0.0-0.06); Absolute Basophil Count 0.04 10^3/uL (0.0-0.2); Absolute Eosinophil Count 0.13 10^3/uL (0.0-0.7); Absolute Lymphocyte Count 2.42 10^3/uL (1.2-3.4); Absolute Neutrophil Count 7.54 10^3/uL (1.2-6.7); Basophils % 0.4; Eosinophils % 1.2; HCT 39.7 % (36.0-46.0); HGB 13.6 g/dL (11.2-15.7); Immature Grans % 0.4; Lymphocytes % 22.5; MCH 28.8 pg (27.0-33.0); MCHC 34.3 % (32.0-36.0); MCV 84 fL (80-95); MPV 8.5 fL (8.0-11.0); Monocytes % 5.6; Neutrophils % 69.9; Platelet Count 304 10^3/uL (130-400); RBC 4.73 10^6/uL (3.93-5.22); RDW 12.5 % (11.7-14.6); WBC 10.77 10^3/uL (4.4-10.8)
[2022-11-07 15:52] LABS: ALT 16 U/L (14-59); AST 11 U/L (15-37); Albumin 3.4 g/dL (3.4-5.0); Alkaline Phosphatase 61 U/L (46-116); Anion Gap 11.3 mmol/L (3-11); BUN 6 mg/dL (7-18); Bilirubin, Total 0.4 mg/dL (0.2-1.0); CO2 23.7 mmol/L (21.0-32.0); CREATININE 0.7 mg/dL (0.55-1.02); Calcium 8.7 mg/dL (8.5-10.1); Chloride 104 mmol/L (98-107); Estimated GFR 114.88 (mL/min/1.73m2); Glucose 82 mg/dL (74-106); Potassium 3.4 mmol/L (3.5-5.1); Sodium 139 mmol/L (136-145); Total Protein 7.4 g/dL (6.4-8.2)
[2022-11-08 10:45] LABS: Hepatitis B Surface Ag Negative (Negative)
[2022-11-08 11:17] LABS: Hepatitis C Ab w Rflx HCV PCR Negative (Negative)
[2022-11-08 11:23] LABS: HIV-1/2 Ag & Ab Screen Negative (Negative)
[2022-11-08 11:34] LABS: Varicella IgG Antibody Positive (See Note)
[2022-11-08 11:38] LABS: Rubella IgG Ab (UVM) Positive (See Note)
[2022-11-09 14:19] LABS: Syphilis IgG w/Reflex Nonreactive (Nonreactive)
== END 2022-11-07 01:17 | disposition home or self-care (01) ==
LOC: LBO 01:16
PROVIDERS: Visit Provider Advanced Practice Midwife
DX: O13.1 Gestational [pregnancy-induced] hypertension without significant proteinuria, first trimester (principal); Z3A.00 Weeks of gestation of pregnancy not specified
CPT/HCPCS: 36415; 80053; 86787; 86803; 86850; 86900; 86901; 87340; 87389; 85025; 86762; 86780

== ENCOUNTER 2022-11-07 15:10 | Outpatient (REF) | payer BC, SELFPAY ==
[2022-11-07 19:50] LABS: *AMPHETAMINES SCREEN URINE Negative (Negative); *BARBITURATES SCREEN URINE Negative (Negative); *BENZODIAZEPINES SCREEN URINE Negative (Negative); Cannabinoids THC Negative (Negative); Cocaine Screen,Urine Negative (Negative); METHADONE URINE SCREEN Negative (Negative); OPIATES URINE SCREEN Negative (Negative)
[2022-11-07 19:51] LABS: Tricyclic Antidepressants Negative (Negative)
[2022-11-14 00:16] LABS: Buprenorphine Negative ng/mL (Cutoff: 5.0); Norbuprenorphine Negative ng/mL (Cutoff: 2.5)
== END 2022-11-07 15:11 | disposition home or self-care (01) ==
LOC: LBN 15:10
PROVIDERS: Visit Provider Advanced Practice Midwife
DX: Z34.91 Encounter for supervision of normal pregnancy, unspecified, first trimester (principal); Z3A.11 11 weeks gestation of pregnancy
CPT/HCPCS: 80307; 80348; 87086

== ENCOUNTER 2022-12-05 02:53 | Outpatient (CLI) | payer BC, SELFPAY ==
[2022-12-05 11:56] LABS: Glucose,1 Hr (Glucola) 114 mg/dL (80-140)
== END 2022-12-05 02:54 | disposition home or self-care (01) ==
LOC: LBO 02:53
PROVIDERS: Visit Provider Advanced Practice Midwife
DX: Z34.92 Encounter for supervision of normal pregnancy, unspecified, second trimester (principal); Z3A.15 15 weeks gestation of pregnancy
CPT/HCPCS: 36415; 82950

== ENCOUNTER 2022-12-05 14:15 | Outpatient (REF) | payer BC, SELFPAY ==
[2022-12-05 13:24] LABS: Creatinine,Urine 128.14 mg/dL; PROTEIN 13.3 mg/dL (0.0-11.9)
[2022-12-05 13:25] LABS: Creatinine,24hr Ur 1.67 g/24hr (0.60-1.80); TOTAL PROTEIN,URINE TIMED 172.9 mg/24hr (0.0-149.1); Total Volume 1300 ml
== END 2022-12-05 14:16 | disposition home or self-care (01) ==
LOC: LBN 14:15
PROVIDERS: Visit Provider Advanced Practice Midwife
DX: O26.892 Other specified pregnancy related conditions, second trimester (principal); Z87.59 Personal history of other complications of pregnancy, childbirth and the puerperium; Z3A.15 15 weeks gestation of pregnancy
CPT/HCPCS: 81050; 82570; 84155

== ENCOUNTER 2023-02-28 02:23 | Outpatient (CLI) | payer BC, SELFPAY ==
[2023-02-28 07:11] LABS: HCT 34.5 % (36.0-46.0); HGB 11.9 g/dL (11.2-15.7); MCH 29.2 pg (27.0-33.0); MCHC 34.5 % (32.0-36.0); MCV 85 fL (80-95); MPV 8.5 fL (8.0-11.0); Platelet Count 211 10^3/uL (130-400); RBC 4.08 10^6/uL (3.93-5.22); RDW 13.1 % (11.7-14.6); RDW-SD 40.2 fL; WBC 8.87 10^3/uL (4.4-10.8)
[2023-02-28 07:42] LABS: ALT 16 U/L (14-59); AST 11 U/L (15-37); Albumin 2.6 g/dL (3.4-5.0); Alkaline Phosphatase 66 U/L (46-116); Anion Gap 9.1 mmol/L (3-11); BUN 6 mg/dL (7-18); Bilirubin, Total 0.2 mg/dL (0.2-1.0); CO2 24.9 mmol/L (21.0-32.0); CREATININE 0.6 mg/dL (0.55-1.02); Calcium 8.7 mg/dL (8.5-10.1); Chloride 101 mmol/L (98-107); Estimated GFR 118.49 (mL/min/1.73m2); Glucose 112 mg/dL (74-106); Potassium 3.5 mmol/L (3.5-5.1); Sodium 135 mmol/L (136-145); Total Protein 6.7 g/dL (6.4-8.2)
[2023-02-28 08:30] LABS: Glucose,1 Hr (Glucola) 118 mg/dL (80-140)
== END 2023-02-28 02:24 | disposition home or self-care (01) ==
LOC: LBO 02:23
PROVIDERS: Visit Provider Advanced Practice Midwife
DX: Z34.92 Encounter for supervision of normal pregnancy, unspecified, second trimester (principal); Z87.59 Personal history of other complications of pregnancy, childbirth and the puerperium
CPT/HCPCS: 36415; 80053; 82950; 85027

== ENCOUNTER → 2023-04-04 02:59 | Outpatient (CLI) | payer BC, SELFPAY ==
--- NOTE | 2023-04-04 07:00 | DI.US_ITS ---
Exam(s) US OB CANDICE WEIGHT EXAM: US OB CANDICE WEIGHT CLINICAL HISTORY: advanced maternal age,z34.90. TECHNIQUE: Transabdominal obstetrical ultrasound performed. COMPARISON: No exams were available for comparison FINDINGS:: Number of fetuses: One. position: Vertex. Placental location: Anterior no evidence of previa. BIOMETRIC DATA: BPD: 83mm = 33 +3 weeks HC: 303mm = 33+4 weeks AC: 303mm = 34+2 weeks FL: 62 mm = 32+ 0 weeks EFW: 06/27/2006 Gms = 84% Composite Age: 33+2 weeks HEIDE: 21 May 2023 Heart Rate: 145BPM Amniotic fluid index: 16.5 cm. Amount of fluid is visually within normal limits. IMPRESSION: size and weight are within the expected range. DATA REPOSITORY:
== END ==
PROVIDERS: Visit Provider Advanced Practice Midwife
DX: Z34.93 Encounter for supervision of normal pregnancy, unspecified, third trimester (principal)
CPT/HCPCS: 76816

== ENCOUNTER 2023-05-09 16:16 | Outpatient (CLI) | payer BC, SELFPAY ==
[2023-05-09 16:33] VITALS: BP 144/79; PULSE 77; TEMP 36.7
[2023-05-09 16:58] VITALS: BP 138/96; PULSE 85
[2023-05-09 17:16] LABS: HCT 35.2 % (36.0-46.0); HGB 12.1 g/dL (11.2-15.7); MCH 27.6 pg (27.0-33.0); MCHC 34.4 % (32.0-36.0); MCV 80 fL (80-95); MPV 9.6 fL (8.0-11.0); Platelet Count 227 10^3/uL (130-400); RBC 4.38 10^6/uL (3.93-5.22); RDW 12.4 % (11.7-14.6); WBC 13.36 10^3/uL (4.4-10.8)
[2023-05-09 17:32] LABS: ALT 12 U/L (14-59); AST 13 U/L (15-37); Albumin 2.5 g/dL (3.4-5.0); Alkaline Phosphatase 144 U/L (46-116); Anion Gap 9.9 mmol/L (3-11); BUN 6 mg/dL (7-18); Bilirubin, Total 0.3 mg/dL (0.2-1.0); CO2 23.1 mmol/L (21.0-32.0); CREATININE 0.7 mg/dL (0.55-1.02); Calcium 8.8 mg/dL (8.5-10.1); Chloride 100 mmol/L (98-107); Estimated GFR 114.16 (mL/min/1.73m2); Glucose 82 mg/dL (74-106); Potassium 3.6 mmol/L (3.5-5.1); Sodium 133 mmol/L (136-145); Total Protein 6.8 g/dL (6.4-8.2)
[2023-05-09 18:05] LABS: COMMENT (LAB VIEW ONLY) 127.25 mg/dL; PROTEIN 26.1 mg/dL
--- NOTE | 2023-05-10 09:24 | W.OBNST ---
Date of service: 05/09/23 Time of Service: 16:30 NST Evaluation Reason for NST Reasons for Nonstress Test: GESTATIONAL HYPERTENSION Gestational Age Gestational Age in Weeks and Days: 37 Weeks and 1Days Test and Monitor Explained Test/Monitor Explained: Test Explained and Monitor Explained Vital Signs Blood Pressure: 144/79 Pulse: 77 Temperature: 98.1 F Urine Results Urine Protein: Negative Urine Ketones: Negative Urine Glucose: Negative Urine Blood: Negative NST Information Date on Monitor: 05/09/23 Time on Monitor: 15:30 Date off Monitor: 05/09/23 Time off Monitor: 16:30 Total Time on Monitor: 60 NST Interventions: PO Hydration Contraction Frequency: irreg, mild NST Evaluation Patient States Movement: Present FHR Baseline: 135 Variability: Moderate 6-25 bpm Accelerations: 15x15 Decelerations: None NST Results: Reactive Note Ultrasound Done: N/A. NST Note Note: CMP, CBC and urine prot/creat are all nml Pt to return Friday next week (in 4 days) for NST & BP check Discussed IOL as likely recommendation @ 38 or 39 wks NST Reviewed and Verified by: Irish Gusman
[2023-05-10 09:26] VITALS: BP 144/79; PULSE 77; TEMP 36.7
== END 2023-05-09 17:26 ==
LOC: BCD 16:21 → OBS 16:21
PROVIDERS: Visit Provider Advanced Practice Midwife
DX: O13.3 Gestational [pregnancy-induced] hypertension without significant proteinuria, third trimester (principal); Z3A.37 37 weeks gestation of pregnancy
CPT/HCPCS: 80053; 85027; 59025; 82565; 84156; 87081

== ENCOUNTER 2023-05-16 02:30 | Inpatient (IN) | payer BC, SELFPAY ==
[2023-05-16] VITALS (15 sets, daily range): BP systolic 109–145; BP diastolic 60–105; PULSE 97–115; RESP 16–17; TEMP 37.3
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
[2023-05-16 03:03] LABS: HCT 38.3 % (36.0-46.0); MCH 27.5 pg (27.0-33.0); MCHC 33.9 % (32.0-36.0); MCV 81 fL (80-95); MPV 9.8 fL (8.0-11.0); Platelet Count 247 10^3/uL (130-400); RBC 4.73 10^6/uL (3.93-5.22); RDW 12.7 % (11.7-14.6); RDW-SD 37.3 fL
[2023-05-16] MEDS: Normal Saline Flush 10 ML SYR IVP (03:08)
[2023-05-16] MEDS: Penicillin G POT. 5,000,000 UNITS in Normal Saline 100 ML 200 UNITS IVPB (03:08)
[2023-05-16 03:11] LABS: ALT 15 U/L (14-59); AST 16 U/L (15-37); Albumin 2.5 g/dL (3.4-5.0); Alkaline Phosphatase 160 U/L (46-116); Anion Gap 13.2 mmol/L (3-11); BUN 9 mg/dL (7-18); Bilirubin, Total 0.4 mg/dL (0.2-1.0); CO2 20.8 mmol/L (21.0-32.0); CREATININE 0.7 mg/dL (0.55-1.02); Calcium 8.8 mg/dL (8.5-10.1); Chloride 101 mmol/L (98-107); Estimated GFR 114.16 (mL/min/1.73m2); Glucose 89 mg/dL (74-106); Sodium 135 mmol/L (136-145); Total Protein 7.1 g/dL (6.4-8.2)
[2023-05-16] MEDS: Ondansetron 4 MG/2 ML VIAL IVP (03:52)
--- NOTE | 2023-05-16 05:39 | OBVDS_ITS ---
Date of service: 05/16/23 Time of Service: 05:39 OB Labor/ Delivery Information Baby A Delivery Delivery Method: Spontaneaous Presentation: Vertex Vertex Position: Right Occipital Anterior Cord Description-Baby A: 3 Vessels, Nuchal Cord (X 1 loose) and Clamped/Cut Amniotic Fluid: Clear Estimated Blood Loss: 250 Delivery Outcome: Liveborn Note: Olga Lidia presented in labor after SROM at 0001 this date. She was 4 cm with CAT I tracing FHR 120's on arrival. She preferred minimal intervention and with the assistance of her Band Sewer and her she progressed well in labor. At approximately 0445 she began to have involuntary pushing efforts. She was in tub and desired waterbirth. Second stage huddle was held, FHR 130, maternal VS stable for second stage labor and low risk for shoulder dystocia or PPH. She delivered her baby SHARMAINE over intact perineum at 0506. When head delivered there w as a nuchal cord loose and I was able to reduce it easily. Shoulders delivered with next maternal pushing effort and baby girl Dung was brought to Mother's back for skin to skin and stimulation/drying. Once baby was stable she was able to be moved to Olga Lidia's chest for skin to skin. scores 8/9. cord stopped pulsations and was double clamped and cut by FOB at 0514 Placenta delivered spontaneously, intact at 0518. Olga Lidia plans to take her placenta home with her. Placenta appears intact. Olga Lidia was then transitioned to her bed while Patrick held his daughter skin to skin. Fundus for Olga Lidia was firm, minimal flow. Perieneum and vagina inspected and are intact. Cord blood was obtained. Instrument and sponge counts are correct. See completed delivery record for baby's weight. At the time of this note the baby is at breast nursing well. Expect normal PP course. Providers Nurse Patient Financial Services Specialist: Ailin Quiñones Nurse: Roopa Gibson Nurse: Zahraa Raymond Labor/Delivery Information Number of Babies in Womb: 1 Steroids Given: None Reason Steroids Not Administered: N/A Group Beta Strep: Positive Antibiotics Administered: Yes Number of Doses of Antibiotics: 1 Rubella Status: Immune Blood Type: A+ Varicella Immunity: Immune Shoulder Dystocia: No Stages of Labor Onset of Labor Date: 05/16/23 Onset of Labor Time: 00:00 Complete Dilatation Date: 05/16/23 ROM Baby A: 05/16/23 ROM Baby A: 00:01 ROM Total Time- Baby A: [id number] Delivery Date-Baby A: 05/16/23 Infant Delivery Time-Baby A: 05:06 Placenta Delivery Date-Baby A: 05/16/23 Placenta Delivery Time-Baby A: 05:18 Labor-Stage 3 Duration: 12 minutes Total Length of Labor-Baby A: 5 hours and 6 minutes Placenta Status: Delivered Baby A Infant Gender: Female Gestational Status: Early Term (37-38.6 wks) Gestational Age in Weeks/Days: 38 Weeks and 1 Days Score-1 Minute Interval(Baby A) Heart Rate-1 minute: 100 BPM or Greater Respiratory Effort- 1 minute: Slow Respiration/Weak Cry Muscle Tone-1 minute: Active Movement Reflex Response-1 minute: Prompt Response Color-1 minute: Bluish Hands or Feet Total Score-1 minute: 8 Score-5 Minute Interval(Baby A) Heart Rate- 5 minute: 100 BPM or Greater Respiratory Effort-5 minute: Spontaneous/Strong Cry Muscle Tone-5 minute: Active Movement Reflex Response-5 minute: Prompt Response Color-5 minute: Bluish Hands or Feet Total Score- 5 minute: 9
[2023-05-16] MEDS: Acetaminophen 325 MG TAB 650 MG PO ×3 (06:13→20:32)
[2023-05-16] MEDS: miSOPROStol 200 MCG TAB 400 MCG SL (06:13)
[2023-05-16] MEDS: Ibuprofen 600 MG TAB PO ×3 (06:13→20:32)
[2023-05-16] MEDS: Dibucaine 1% 28 GM TUBE TP (09:41)
[2023-05-16] MEDS: Hamamelis Leaf/Glycerin 100 EACH BOX PR (09:42)
[2023-05-16] MEDS: Docusate Sodium 100 MG CAP PO (18:53)
[2023-05-16] MEDS: buPROPion-CR 100 MG TABCR PO (20:32)
[2023-05-16] MEDS: Sertraline 50 MG TAB 150 MG PO (20:59)
[2023-05-17 04:00] VITALS: BP 112/63; PULSE 78; RESP 17; TEMP 36.7; O2SAT 98
[2023-05-17 07:30] VITALS: BP 125/101; PULSE 86; RESP 14; TEMP 36.7
[2023-05-17] MEDS: Ibuprofen 600 MG TAB PO ×3 (07:54→20:04)
[2023-05-17] MEDS: Acetaminophen 325 MG TAB 650 MG PO ×3 (07:55→20:04)
[2023-05-17 09:00] VITALS: BP 125/93
--- NOTE | 2023-05-17 11:05 | W.PM.OBPNV1 ---
Date of service: 05/17/23 Time of Service: 11:06 Assessment and Plan Assessment and plan (1) Term of female : Status: Acute Assessment and plan: Caring for baby independently. Pain is managed well with oral analgesics. Voiding without difficulty. well. A - stable mother and baby , Post day 1, group b strep carrier P - Discharge to home tomorrow. Routine post instructions. [facility] (2) Group B Streptococcus carrier, +RV culture, currently : Status: Acute Subjective Subjective Patient comments: No complaints baby status: Doing well [place] feeding status: Exclusively breast feeding Exam Physical Exam Vital signs: Temp Pulse Resp BP Pulse Ox 98.1 F 86 14 125/93 H 98 05/17/23 07:30 05/17/23 07:30 05/17/23 07:30 05/17/23 09:00 05/17/23 04:00 Vital Signs Reviewed: Yes Constitutional Constitutional: no acute distress Respiratory Exam Respiratory Exam: Normal Cardiovascular Exam Cardiovascular Exam: Normal Fundal Exam Fundus: Below Umbilicus and Firm Extremities Exam Extremity Exam: Normal Back/Spine/Pelvis Exam Back Exam: Normal Skin Exam Skin Exam: Normal Psychiatric Exam Psychiatric Exam: Normal Results Hemoglobin/Hematocrit: Hgb 13.0 g/dL (11.2-15.7) 05/16/23 02:48 Hct 38.3 % (36.0-46.0) 05/16/23 02:48 Abnormal Lab Findings: Abnormal Labs 05/16/23 02:48 WBC 14.20 H Sodium 135 L Carbon Dioxide 20.8 L Anion Gap 13.2 H Alkaline Phosphatase 160 H Albumin 2.5 L
[2023-05-17] MEDS: Docusate Sodium 100 MG CAP PO (13:18)
[2023-05-17 16:15] VITALS: BP 138/97; PULSE 75; RESP 16; TEMP 36.6; O2SAT 100
[2023-05-17] MEDS: Sertraline 50 MG TAB 150 MG PO (20:04)
[2023-05-17 20:05] VITALS: BP 139/77; PULSE 84; RESP 18; TEMP 36.8
[2023-05-17] MEDS: buPROPion-CR 100 MG TABCR PO (20:05)
[2023-05-18 07:50] VITALS: BP 136/107; PULSE 91; RESP 16; TEMP 37.3
[2023-05-18] MEDS: Docusate Sodium 100 MG CAP PO (10:58)
[2023-05-18] MEDS: Acetaminophen 325 MG TAB 650 MG PO (10:58)
[2023-05-18] MEDS: Ibuprofen 600 MG TAB PO (10:59)
--- NOTE | 2023-05-19 09:52 | OBPPV_ITS ---
Date of service: 05/18/23 Time of Service: 10:30 Assessment and Plan Assessment and plan (1) Term delivered: Status: Acute Assessment and plan: A: nml PPD#2 gHTN, delivered after spont labor, s/p P: discharge today Supports in place at home Written instructions give to pt Will return in 2 days for BP check on BC Considering POP's for BCM Subjective Subjective Patient comments: No complaints, Pain well controlled, Tolerating diet and Flatus present Patient's Mood: happy [place] baby status: Doing well, Nursing well, Rooming in and Strong Bonding Observed feeding status: Exclusively breast feeding Exam Physical Exam Vital signs: Temp Pulse Resp BP Pulse Ox 99.1 F 91 H 16 136/107 H 100 05/18/23 07:50 05/18/23 07:50 05/18/23 07:50 05/18/23 07:50 05/17/23 16:15 Vital Signs Reviewed: Yes Constitutional Constitutional: no acute distress HEENT Exam HEENT Exam: Normal Neck Exam Neck Exam: Normal Breast Exam Bilateral: Breast Exam: Normal and Soft Nipple Exam: Normal and Uninjured Respiratory Exam Respiratory Exam: Normal Cardiovascular Exam Cardiovascular Exam: Normal Abdominal Exam Abdomen: Other (soft, nontender) Fundal Exam Fundus: Below Umbilicus and Firm Extremities Exam Extremity Exam: Normal, Full ROM and Warm to Touch Back/Spine/Pelvis Exam Back Exam: Normal Skin Exam Skin Exam: Normal Neurological Exam Neurological Exam: Normal Psychiatric Exam Psychiatric Exam: Normal
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
== END 2023-05-18 12:00 | disposition home or self-care (01) | DRG 807 ==
PROVIDERS: Admitting Provider Advanced Practice Midwife; Visit Provider Advanced Practice Midwife
DX: Z37.0 Single live birth; O99.824 Streptococcus B carrier state complicating childbirth; Z3A.38 38 weeks gestation of pregnancy; O13.4 Gestational [pregnancy-induced] hypertension without significant proteinuria, complicating childbirth; O99.344 Other mental disorders complicating childbirth; F32.A Depression, unspecified; O21.0 Mild hyperemesis gravidarum; O69.81X0 Labor and delivery complicated by cord around neck, without compression, not applicable or unspecified
CPT/HCPCS: 36415; 80053; 85027; 86850; 86900; 86901; J2405; J2540

== ENCOUNTER 2023-05-20 08:23 | Outpatient (CLI) | payer BC, SELFPAY ==
[2023-05-20 12:29] VITALS: BP 140/93
[2023-05-20 12:36] VITALS: BP 145/97
[2023-05-20 12:40] VITALS: BP 138/90
[2023-05-20 13:47] LABS: COMMENT (LAB VIEW ONLY) 172.31 mg/dL; PROTEIN 37.9 mg/dL; Prot/Crea Ur Ratio 0.21
== END 2023-05-20 13:50 ==
LOC: BCD 08:25 → OBS 12:43
PROVIDERS: Visit Provider Advanced Practice Midwife
DX: Z34.93 Encounter for supervision of normal pregnancy, unspecified, third trimester (principal)
CPT/HCPCS: 99211; 82565; 84156

== ENCOUNTER 2023-05-21 06:34 | Outpatient (CLI) | payer BC, SELFPAY ==
[2023-05-21 09:19] VITALS: BP 160/100; PULSE 82
[2023-05-21 09:32] VITALS: BP 149/96; PULSE 83
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
--- NOTE | 2023-05-21 11:32 | PGE_ITS ---
Date of Service Date of service: 05/21/23 Time of Service: 10:20 Assessment and Plan Assessment and plan (1) Elevated blood pressure reading: Status: Acute Assessment and plan: 1. 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 2. She will call immediately for readings 160/110 or higher or if symptoms of AMARO, visual changes or epigastric pain occur. 3. I reviewed that if BP's are not severe range but remain elevated ie 140/90 range that medication is recommended and she agrees to do that if that is the case. 4. I reviewed with Dr. Yeung that Olga Lidia declines medication today but will begin in a few days of elevations continue. feels this is acceptable alternative as patient refuses medication at this time and she is . LUIS Subjective Subjective Interval history since last seen: Olga Lidia Razo and her partner present with their for BP check outpatient on . She had BP check yesterday and it was elevated. Urine dip was negative fo r protein. She has had labs for pre-eclampsia which have been negative. She had GHTN in first and was being diagnosed with GHTN when she delivered spontaneously, vaginally. She is breast feeding. Olga Lidia admits to feeling euphoric mostly but becomes tearful when talking about possible need for anti- hypertensive medications. She strongly prefers to avoid them even though she verbalizes understanding that HTN can lead to life threatening health conditions, especially if untreated over time. Exam Const General: cooperative, healthy appearing, well developed and well groomed Nutritional Appearance: well nourished and overweight Orientation: alert and oriented x3 [facility] Head: normocephalic and atraumatic Ears: hearing grossly normal bilaterally and external ears normal General nose exam: external nose normal and nares normal Face and sinus: face symmetric Eyes General: appearance normal, both eyes and all related structures Eyelids: eyelids normal Sclera: sclerae normal Neck Neck: normal visual inspection and full ROM Resp Effort & Inspection: normal respiratory effort and able to speak in complete sentences Cardio Rate: regular rate (after resting for a period of time) Back/Spine/Pelvis Pelvis: no pain with anterior-posterior compression Skin General skin exam: no rashes or lesions noted and turgor normal Neuro General: gait normal, tone normal and moves all extremities Extrem General: normal to inspection, full ROM, no pedal edema and no calf tenderness Psych Appearance: grossly normal and well kempt Mental Status: mental status grossly normal Speech and Movement: speech and movement normal Mood: congruent mood Affect: normal affect Attitude: cooperative Thought Process: normal Thought Content: normal Insight: insight good Judgment: judgment good Other: Olga Lidia becomes tearful when speaking about anti-hyperternsive medications but agrees to treatment if BP's remain elevated even in her home environment. KH Objective Last Vital Signs Pulse 83 05/21/23 09:32 BP 149/96 H 05/21/23 09:32 Time Spent with Patient Time Spent with Patient: 25-34 minutes Time was spent: preparing to see the patient(eg.review tests), counseling the patient and care coordination
== END 2023-05-21 10:05 | disposition home or self-care (01) ==
LOC: BCD 06:35
PROVIDERS: Visit Provider Obstetrics & Gynecology
DX: R03.0 Elevated blood-pressure reading, without diagnosis of hypertension (principal)
CPT/HCPCS: 99211

== ENCOUNTER → 2023-11-25 12:46 | Outpatient (CLI) | payer BC, SELFPAY ==
--- NOTE | 2023-11-25 | DI.RAD_ITS ---
Exam(s) XR CHEST 2V PA LATERAL EXAM: XR CHEST 2V PA LATERAL CLINICAL HISTORY: COUGH, R05.9. TECHNIQUE: 2D digital imaging was performed. COMPARISON: CT CT ABDOMEN PELVIS W from 09/19/2019 FINDINGS: 2 views: Heart size is normal. The mediastinum is not widened. Left lung is clear. There is some infiltrate noted in the right middle lobe. No pleural effusions. IMPRESSION: Right middle lobe infiltrate.No obvious pleural effusions. DATA REPOSITORY: RADIATION DOSE DELIVERED:
== END ==
PROVIDERS: Visit Provider Nurse Practitioner Family
DX: R05.9 Cough, unspecified (principal); R91.8 Other nonspecific abnormal finding of lung field
CPT/HCPCS: 71046

== ENCOUNTER 2024-06-29 10:41 | Outpatient (CLI) | payer BC, SELFPAY ==
--- NOTE | 2024-06-29 | DI.RAD_ITS ---
Exam(s) XR CHEST 2V PA LATERAL EXAM: XR CHEST 2V PA LATERAL CLINICAL HISTORY: Cough, unspecified, x 6 days, R05.9 TECHNIQUE: 2D digital imaging was performed. Two views. COMPARISON: CR XR CHEST 2V PA LATERAL from 11/25/2023 FINDINGS: HEART: Normal size. Aorta: Not dilated. PULMONARY VASCULATURE: Normal. MEDIASTINUM: Unremarkable. LUNGS: Clear. PLEURAL SPACE: No pleural effusion or pneumothorax. BONE:Unremarkable for age. SOFT TISSUES: Unremarkable. IMPRESSION: No acute abnormality. DATA REPOSITORY: RADIATION DOSE DELIVERED:
== END 2024-06-29 11:01 ==
LOC: DI 10:41
PROVIDERS: Visit Provider Nurse Practitioner Family
DX: R05.9 Cough, unspecified (principal)
CPT/HCPCS: 71046

== ENCOUNTER 2024-08-06 13:04 | Outpatient (REF) | payer BC, SELFPAY | END 2024-08-06 13:05 | disposition home or self-care (01) | LOC: LBN 13:04 | PROVIDERS: Visit Provider Advanced Practice Midwife | DX: R10.2 Pelvic and perineal pain (principal); N91.2 Amenorrhea, unspecified; N89.8 Other specified noninflammatory disorders of vagina | CPT/HCPCS: 87480; 87510; 87660 ==

== ENCOUNTER 2025-04-05 00:49 | Outpatient (CLI) | payer BC, SELFPAY ==
--- NOTE | 2025-04-14 11:13 | W.NUTRFU ---
Date of service: 04/05/25 Time of Service: 09:00 Nutrition Note NOTE: Olga Lidia referred to nutrition visit for guidance with wt mgt. Lives at home with , 2 kids (2yo and 6yo) and mother. Struggles with meals to satisfy everyone who eats at meals without compromising her goals Reviewed she should target her meals/snacks that she eats independently and try to create a better balance on her plate (more non starchy veggies and less starch and fat can be accomplished within the same meal) -Also showed her resources from [employer] Delgado for feeding families within the division of repsonsibility and reminded her that her goal it not to cater to others desires but to help them grow with accepting a larger variety of healthy food choices. Suggested she aim to be a little repetitive with many meals and snacks that she eats independently...maybe limit breakfast menu to 3 menus for a few weeks or more at a time. Suggested she work with menu planning resources (AI/chatGPT) based on the following recommendations, which she can edit indefinitely according to budget preferences, etc... Suggested goals of 1500kcals, 150g total carbohydrates, 112g protein, 50g fat, no more than 30g added sugar and at least 30g fiber. She was sent sample menus along with other resources and has my contact info to reach out with any questions or desire for follow up. Time Spent in Nutritional Counseling and Treatment: 25 min
== END 2025-04-05 00:50 | disposition home or self-care (01) ==
LOC: DS 00:49
PROVIDERS: Visit Provider Dietitian, Registered
DX: R63.5 Abnormal weight gain (principal)
CPT/HCPCS: 00123; 97802